=== PATIENT | female | born 1985 ===

== ENCOUNTER 2018-10-18 12:56 | Emergency (ER) | payer SELFPAY ==
[~2018-10-18] VITALS: Ht 175.3 cm; Wt 108.9 kg
[2018-10-18] MEDS ORDERED: ONDANSETRON PF 4 MG/2 ML VIAL. IV ONE (13:15)
[2018-10-18] MEDS ORDERED: FAMOTIDINE 20 MG/2 ML VIAL IVP ONE (13:15)
[2018-10-18] MEDS ORDERED: methylPREDNISolone SOD SUCC PF 125 MG/2 ML VIAL. IV ONE (13:15)
[2018-10-18] MEDS ORDERED: diphenhydrAMINE 50 MG/ML VIAL IVP ONE (13:15)
[2018-10-18] MEDS ORDERED: IV NORMAL SALINE 1,000ML 1,000 ML IV ONE (13:15)
--- NOTE | 2018-10-18 13:18 | PHYS DOC ---
Adult General Chief Complaint Chief Complaint: ALLERGIC REACTION HPI HPI 33-year-old female presents after a bee sting. The patient had a be in her hair and then it stung her on the right cheek. She occurred 30 minutes prior to arrival. The patient is very concerned because she is allergic to bees. She has not been stung in over 20 years. Last time she was in elementary school. She had urticaria, nausea, vomiting, fever, and dizziness. The patient was not intubated. At this time, the patient is feeling nauseated and a little dizzy. She denies pruritus. She is not having difficulty breathing. She has not vomited. She denies fever or chills. She feels that she might have some right- sided facial numbness similar to "dental Novocain". The patient does not carry an EpiPen. Review of Systems Review of Systems Constitutional: Denies fever or chills. Allergic reaction [] Eyes: Denies change in visual acuity, redness, or eye pain [] HENT: Denies nasal congestion or sore throat [] Respiratory: Denies cough or shortness of breath [] Cardiovascular: No additional information not addressed in HPI [] GI: Denies abdominal pain, nausea, vomiting, bloody stools or diarrhea [] : Denies dysuria or hematuria [] Musculoskeletal: Denies back pain or joint pain [] Integument: Insect sting[] Neurologic: Denies headache, focal weakness or sensory changes [] Endocrine: Denies polyuria or polydipsia [] All other systems were reviewed and found to be within normal limits, except as documented in this note. Current Medications Current Medications Current Medications Medications (Trade) Dose Ordered Sig/Ruy Start Time Stop Time Status Last Admin Dose Admin Diphenhydramine HCl (Benadryl) 25 mg 1X ONCE 10/18/18 13:15 10/18/18 13:16 UNV Famotidine (Pepcid Vial) 20 mg 1X ONCE 10/18/18 13:15 10/18/18 13:16 UNV Methylprednisolone Sodium Succinate (SOLU-Medrol 125MG VIAL) 125 mg 1X ONCE 10/18/18 13:15 10/18/18 13:16 UNV Sodium Chloride 1,000 ml @ 1,000 mls/hr 1X ONCE 10/18/18 13:15 10/18/18 14:14 Allergies Allergies Allergies Coded Allergies Type Severity Reaction Last Updated Verified clarithromycin Allergy Unknown 10/18/18 Yes Physical Exam Physical Exam Constitutional: Well developed, well nourished, no acute distress, non-toxic appearance. [] HENT: Normocephalic, atraumatic, bilateral external ears normal, oropharynx moist, no oral exudates, nose normal. [] Eyes: PERRLA, EOMI, conjunctiva normal, no discharge. [] Neck: Normal range of motion, no tenderness, supple, no stridor. [] Cardiovascular:Heart rate regular rhythm, no murmur [] Lungs & Thorax: Bilateral breath sounds clear to auscultation [] Abdomen: Bowel sounds normal, soft, no tenderness, no masses, no pulsatile masses. [] Skin: Warm, dry, no erythema, no rash. No obvious sting location.[] Back: No tenderness, no CVA tenderness. [] Extremities: No tenderness, no cyanosis, no clubbing, ROM intact, no edema. [] Neurologic: Alert and oriented X 3, normal motor function, normal sensory function, no focal deficits noted. [] Psychologic: Affect normal, judgement normal, mood anxious. [] EKG EKG [] Radiology/Procedures Radiology/Procedures [] Course & Med Decision Making Course & Med Decision Making Pertinent Labs and Imaging studies reviewed. (See chart for details) The patient's labs are unremarkable. She was given 125 of Solu-Medrol, 20 mg of Pepcid, 25 mg of Benadryl, and a liter of normal saline for her possible allergic reaction. She was also given Zofran for her nausea. The patient is starting to feel better, but is a bit sleepy. She has a headache and I have given her 30 mg Toradol IV. Overall the patient feels better. She's had no difficulty breathing at any time off she's been in the ED. She would like to go home and continue to rest. There will be other people there to monitor her. I believe this is reasonable plan. She is stable for discharge at this time. [] Dragon Disclaimer Dragon Disclaimer This electronic medical record was generated, in whole or in part, using a voice recognition dictation system. Departure Departure: Impression: Primary Impression: Allergic reaction to bee sting Disposition: HOME, SELF-CARE Condition: STABLE Referrals: BENTLEY LIRA (PCP) Patient Instructions: Insect Sting Allergy NNEKA ASH DO Oct 18, 2018 13:18
[2018-10-18 13:20] LABS: BASO # 0.1 x10^3/uL (0.0-0.2); BASO % 1 % (0-3); EOS # 0.1 x10^3/uL (0.0-0.7); EOS % 1 % (0-3); HEMATOCRIT 40.1 % (36.0-47.0); HEMOGLOBIN 14.1 g/dL (12.0-15.5); LYMPH # 2.5 x10^3/uL (1.0-4.8); LYMPH % 34 % (24-48); MEAN CORPUSCULAR HEMOGLOBIN 29 pg (25-35); MEAN CORPUSCULAR HGB CONC 35 g/dL (31-37); MEAN CORPUSCULAR VOLUME 82 fL (79-100); MONO # 0.6 x10^3/uL (0.0-1.1); MONO % 9 % (0-9); NEUT % 55 % (31-73); PLATELET COUNT 292 x10^3/uL (140-400); RED BLOOD COUNT 4.93 x10^6/uL (3.50-5.40); RED CELL DISTRIBUTION WIDTH 13.5 % (11.5-14.5); WHITE BLOOD COUNT 7.3 x10^3/uL (4.0-11.0)
[2018-10-18 13:34] LABS: ALBUMIN 4.1 g/dL (3.4-5.0); ALBUMIN/GLOBULIN RATIO 1.2 (1.0-1.7); CALCIUM 8.9 mg/dL (8.5-10.1); GFR 63.9; POTASSIUM 3.5 mmol/L (3.5-5.1); TOTAL BILIRUBIN 0.5 mg/dL (0.2-1.0); TOTAL PROTEIN 7.5 g/dL (6.4-8.2)
[2018-10-18 14:00] VITALS: BP 123/79
[2018-10-18] MEDS ORDERED: KETOROLAC 30 MG/ML VIAL. IV ONE (14:15)
== END 2018-10-18 14:30 | disposition home or self-care (01) ==
LOC: ER 12:56
DX: T63.441A Toxic effect of venom of bees, accidental (unintentional), initial encounter (principal); R42 Dizziness and giddiness; Z88.1 Allergy status to other antibiotic agents; Y92.89 Other specified places as the place of occurrence of the external cause
CPT/HCPCS: 36415; 80053; 85025; 96361; 96374; 96375; 99284; J1200; J1885; J2405; J2930; J3490; J7030

== ENCOUNTER 2020-12-31 11:33 | Emergency (ER) | payer OTHER ==
[~2020-12-31] VITALS: Ht 175.3 cm; Wt 99.0 kg
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
[2020-12-31] MEDS ORDERED: ONDANSETRON ODT 4 MG TAB.RAPDIS PO ONE (12:15)
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
[2020-12-31] MEDS ORDERED: ONDA4TAB12 PO (12:30)
[2020-12-31 13:25] VITALS: BP 127/78
== END 2020-12-31 13:25 | disposition home or self-care (01) ==
LOC: ER 11:33
DX: S06.0X0A Concussion without loss of consciousness, initial encounter (principal); J45.909 Unspecified asthma, uncomplicated; Z88.1 Allergy status to other antibiotic agents; Y08.89XA Assault by other specified means, initial encounter; Y93.89 Activity, other specified; Y92.89 Other specified places as the place of occurrence of the external cause; Y99.8 Other external cause status
CPT/HCPCS: 70450; 99284; Q0162